=== PATIENT | male | born 1995 | race Caucasian/White ===

== ENCOUNTER 2018-12-07 18:26 | Emergency (ER) | payer SELFPAY | END 2018-12-07 19:00 | disposition home or self-care (01) | LOC: BURERS 18:26 | DX: S92.901D Unspecified fracture of right foot, subsequent encounter for fracture with routine healing (principal); F17.210 Nicotine dependence, cigarettes, uncomplicated | CPT/HCPCS: 99283 ==

== ENCOUNTER 2019-03-20 23:30 | Emergency (ER) | payer SELFPAY | END 2019-03-20 23:50 | disposition home or self-care (01) | LOC: BURERS 23:30 | DX: K02.9 Dental caries, unspecified (principal); Z71.6 Tobacco abuse counseling; F17.210 Nicotine dependence, cigarettes, uncomplicated | CPT/HCPCS: 99406 ==

== ENCOUNTER 2019-04-29 19:43 | Emergency (ER) | payer SELFPAY ==
[2019-04-29] MEDS ORDERED: HYDROcodone/Acetaminophen 10/325 mg Tablet ONE (19:59)
[2019-04-29] MEDS ORDERED: AMOXicillin 250 MG CAP ONE ×2 (19:59→20:02)
== END 2019-04-29 20:08 | disposition home or self-care (01) ==
LOC: BURERS 19:43
DX: K04.7 Periapical abscess without sinus (principal); K02.9 Dental caries, unspecified; F17.210 Nicotine dependence, cigarettes, uncomplicated
CPT/HCPCS: 99282

== ENCOUNTER 2019-07-09 12:43 | Emergency (ER) | payer BC ==
[2019-07-09] MEDS ORDERED: Ondansetron PF 4 MG/2 ML Vial ONE (13:08)
[2019-07-09] MEDS ORDERED: Glycopyrrolate 0.4 MG/ 2 ML VIAL ONE (13:08)
== END 2019-07-09 14:17 | disposition home or self-care (01) ==
LOC: BURERS 12:43
DX: E86.0 Dehydration (principal); R11.2 Nausea with vomiting, unspecified; R19.7 Diarrhea, unspecified; F17.210 Nicotine dependence, cigarettes, uncomplicated
CPT/HCPCS: 96361; 96374; 96375; J2405

== ENCOUNTER 2020-02-18 18:18 | Emergency (ER) | payer BC | END 2020-02-18 18:45 | disposition home or self-care (01) | LOC: BURERS 18:18 | DX: S86.011A Strain of right Achilles tendon, initial encounter (principal); F17.210 Nicotine dependence, cigarettes, uncomplicated; X50.9XXA Other and unspecified overexertion or strenuous movements or postures, initial encounter | CPT/HCPCS: 99283 ==

== ENCOUNTER 2020-12-05 20:54 | Emergency (ER) | payer BC, SELFPAY ==
[2020-12-05] MEDS ORDERED: Ketorolac Tromethamine 30 MG/ML VIAL ONE (21:10)
[2020-12-05] MEDS ORDERED: Ibuprofen 200 MG TAB ONE (21:15)
== END 2020-12-05 21:39 | disposition home or self-care (01) ==
LOC: BURERS 20:54
DX: S53.401A Unspecified sprain of right elbow, initial encounter (principal); S00.83XA Contusion of other part of head, initial encounter; S00.11XA Contusion of right eyelid and periocular area, initial encounter; F17.290 Nicotine dependence, other tobacco product, uncomplicated; H11.31 Conjunctival hemorrhage, right eye; Y04.0XXA Assault by unarmed brawl or fight, initial encounter
CPT/HCPCS: J1885

== ENCOUNTER 2020-12-07 10:58 | Emergency (ER) | payer SELFPAY | END 2020-12-07 11:25 | disposition home or self-care (01) | LOC: BURERS 10:58 | DX: S60.211D Contusion of right wrist, subsequent encounter (principal); F17.290 Nicotine dependence, other tobacco product, uncomplicated | CPT/HCPCS: 99283 ==

== ENCOUNTER 2021-03-15 23:43 | Emergency (ER) | payer SELFPAY ==
[2021-03-16] MEDS ORDERED: Dexamethasone 4 MG TAB ONE (00:19)
[2021-03-16] MEDS ORDERED: Sulfameth/Trimethoprim DS 800-160mg TAB ONE (00:20)
[2021-03-16 17:24] LABS: SARS-CoV-2 PCR by NAA Not Detected (NotDetected)
== END 2021-03-16 00:35 | disposition home or self-care (01) ==
LOC: BURERS 23:43
DX: J01.90 Acute sinusitis, unspecified (principal); H66.92 Otitis media, unspecified, left ear; Z20.822 Contact with and (suspected) exposure to COVID-19; F17.210 Nicotine dependence, cigarettes, uncomplicated
CPT/HCPCS: 99284; J8540; U0003; U0005

== ENCOUNTER 2021-07-12 21:19 | Emergency (ER) | payer SELFPAY ==
[2021-07-12 22:36] LABS: #Basophils 0.1 thou/uL (0.0-0.2); #Lymphocytes 0.7 thou/uL (1.20-3.40); #Monocytes 0.9 thou/uL (0.11-0.59); #Neutrophils 5.1 thou/uL (1.40-6.50); %Basophils 1.8 % (0.0-1.0); %Eosinophils 0.2 % (0.0-10.0); %Lymphocytes 9.9 % (21.0-51.0); %Monocytes 13.4 % (0.0-10.0); %Neutrophils 74.7 % (42.0-75.0); Hemoglobin 14.3 g/dL (14.0-18.0); Mean Corpuscular HGB CONC 33.9 g/dL (32.0-36.0); Mean Corpuscular Hemoglobin 29.3 pg (27.0-31.0); Mean Corpuscular Volume 86.5 fL (78.0-98.0); Platelet Count 207 thou/uL (130-400); Red Blood Cell (RBC) Count 4.86 mill/uL (4.70-6.10); White Blood Cell (WBC) Count 6.8 thou/uL (4.8-10.8)
[2021-07-12 22:45] LABS: ALT (SGPT) 15 U/L (8-55); AST (SGOT) 16 U/L (5-34); Alkaline Phosphatase 62 U/L (40-110); Anion Gap 15 mmol/L (10-20); BUN (Urea Nitrogen) 11 mg/dL (8.9-20.6); Bilirubin, Total 0.5 mg/dL (0.2-1.2); Calc. Creatinine Clearance 0 mL/min (70-130); Calcium 9.2 mg/dL (7.8-10.44); Carbon Dioxide 24 mmol/L (22-29); Chloride 106 mmol/L (98-107); Globulin 2.7 g/dL (2.4-3.5); Glucose 85 mg/dL (70-105); Potassium 3.6 mmol/L (3.5-5.1); Protein, Total 6.7 g/dL (6.0-8.3); Sodium 141 mmol/L (136-145)
== END 2021-07-12 23:20 | disposition home or self-care (01) ==
LOC: BURERS 21:19
DX: R55 Syncope and collapse (principal); F17.210 Nicotine dependence, cigarettes, uncomplicated
CPT/HCPCS: 36415; 71045; 80053; 83880; 84484; 85025; 93005

== ENCOUNTER 2021-08-09 12:30 | Emergency (ER) | payer SELFPAY ==
[2021-08-09] MEDS ORDERED: Ondansetron ODT 4 MG TAB ONE (13:05)
[2021-08-09] MEDS ORDERED: Mag-Al Plus 1200 MG/1200 MG/120 MG/30 ML UDCUP ONE (13:14)
[2021-08-09] MEDS ORDERED: Lidocaine Viscous Sol 2% 15 ml UD Cup ONE (13:14)
[2021-08-09 14:58] LABS: #Basophils 0.1 thou/uL (0.0-0.2); #Lymphocytes 0.2 thou/uL (1.20-3.40); #Monocytes 0.7 thou/uL (0.11-0.59); #Neutrophils 5.7 thou/uL (1.40-6.50); %Basophils 1.3 % (0.0-1.0); %Eosinophils 0.6 % (0.0-10.0); %Lymphocytes 3.3 % (21.0-51.0); %Monocytes 10.7 % (0.0-10.0); Hemoglobin 14.1 g/dL (14.0-18.0); Mean Corpuscular HGB CONC 33.3 g/dL (32.0-36.0); Mean Corpuscular Hemoglobin 28.9 pg (27.0-31.0); Mean Corpuscular Volume 86.7 fL (78.0-98.0); Mean Platelet Volume 8.4 fL (7.4-10.4); Platelet Count 192 thou/uL (130-400); RBC Distribution Width 12.5 % (11.5-14.5); Red Blood Cell (RBC) Count 4.87 mill/uL (4.70-6.10); White Blood Cell (WBC) Count 6.8 thou/uL (4.8-10.8)
[2021-08-09 15:10] LABS: ALT (SGPT) 24 U/L (8-55); AST (SGOT) 19 U/L (5-34); Albumin 4.4 g/dL (3.5-5.0); Alkaline Phosphatase 65 U/L (40-110); Anion Gap 11 mmol/L (10-20); BUN (Urea Nitrogen) 12 mg/dL (8.9-20.6); Bilirubin, Total 0.7 mg/dL (0.2-1.2); Calc. Creatinine Clearance 0 mL/min (70-130); Calcium 9.3 mg/dL (7.8-10.44); Carbon Dioxide 24 mmol/L (22-29); Chloride 106 mmol/L (98-107); Globulin 2.9 g/dL (2.4-3.5); Glucose 105 mg/dL (70-105); Lipase 5 U/L (8-78); Protein, Total 7.3 g/dL (6.0-8.3); Sodium 137 mmol/L (136-145)
[2021-08-10 08:43] LABS: SARS-CoV-2 PCR by NAA DETECTED (NotDetected)
== END 2021-08-09 14:57 | disposition home or self-care (01) ==
LOC: BURERS 12:30
DX: U07.1 COVID-19 (principal); R10.13 Epigastric pain; R11.2 Nausea with vomiting, unspecified; F17.210 Nicotine dependence, cigarettes, uncomplicated
CPT/HCPCS: 36415; 71045; 80053; 83690; 85025; 93005; Q0162; U0003; U0005

== ENCOUNTER 2024-03-07 21:14 | Emergency (ER) | payer SELFPAY ==
[2024-03-07] MEDS ORDERED: Ketorolac Tromethamine 60 MG/2 ML VIAL ONE (21:32)
[2024-03-07] MEDS ORDERED: AMOXicillin 250 MG CAP ONE (21:32)
== END 2024-03-07 21:52 | disposition home or self-care (01) ==
LOC: BURERS 21:14
DX: K04.7 Periapical abscess without sinus (principal); K08.89 Other specified disorders of teeth and supporting structures; F17.210 Nicotine dependence, cigarettes, uncomplicated
CPT/HCPCS: 96372; 99282; J1885